=== PATIENT | female | born 1970 | race Caucasian/White ===

== ENCOUNTER 2021-03-23 08:40 | Emergency (ER) | payer BC ==
[2021-03-23 09:16] VITALS: TEMP 98.3; BMI 27.4
[2021-03-23 10:03] LABS: BASO % 1.9 % (0-2.0); EOS % 1.7 % (0-4.5); HEMATOCRIT 39.7 % (32.4-45.2); HEMOGLOBIN 13.5 GM/dl (10.7-15.3); LYMPH % 33.9 % (8-40); MCH 30.3 pg (25.7-33.7); MCHC 34.1 g/dl (32.0-36.0); MEAN CELL VOLUME 88.8 fl (80-96); MONO % 10.6 % (3.8-10.2); NEUT % 51.9 % (42.8-82.8); PLATELET COUNT 327 10^3/uL (134-434); RBC 4.47 M/mm3 (3.60-5.2); RDW 12.1 % (11.6-15.6); WHITE BLOOD COUNT 6.1 K/mm3 (4.0-10.8)
[2021-03-23 10:04] LABS: INR 1.03 (0.82-1.09); PROTHROMBIN TIME (PATIENT) 11.5 SEC (10.2-13.0)
[2021-03-23 10:11] LABS: ALBUMIN 4.5 g/dl (3.4-5.0); ALK PHOS 63 U/L (45-117); ANION GAP 17 MMOL/L (8-16); BILIRUBIN,TOTAL 0.7 mg/dl (0.2-1); CALCIUM 9.5 mg/dl (8.5-10); CHLORIDE 96 mmol/L (98-107); CO2 23 mmol/L (21-32); CREATININE 0.8 mg/dl (0.55-1.3); GLUCOSE,RANDOM 134 mg/dl (74-106); SGOT/AST 26 U/L (15-37); SGPT/ALT 18 U/L (13-61); SODIUM 136 mmol/L (136-145); TOT PROT 7.3 g/dl (6.4-8.2)
[2021-03-23 10:49] LABS: HCG,QUALITATIVE URINE Negative
[2021-03-23] MEDS ORDERED: EPINEPHrine/PF 1 MG/1 ML (1:1,000) AMPULE ONE (12:02)
[2021-03-23 12:21] VITALS: PULSE 82
[2021-03-23 13:45] VITALS: BP 121/85
== END 2021-03-23 13:55 | disposition home or self-care (01) ==
LOC: FER 08:40
PROC: 3E033NZ Introduction of Analgesics, Hypnotics, Sedatives into Peripheral Vein, Percutaneous Approach (ICD-10-PCS; principal; 2021-03-23)
PROC: 3E033GC Introduction of Other Therapeutic Substance into Peripheral Vein, Percutaneous Approach (ICD-10-PCS; 2021-03-23)
DX: M54.6 Pain in thoracic spine (principal)
CPT/HCPCS: 36415; 71275-TC; 80053; 81003; 82550; 84484; 84703; 85025; 85610; 93005; 99285-25